=== PATIENT | male | born 1975 | race Caucasian/White ===

== ENCOUNTER → 2018-07-18 | Outpatient (CLI) | payer BC ==
--- NOTE | 2018-07-18 17:03 | RAD ---
Scrotal ultrasound 07/18/2018 CLINICAL HISTORY: Right scrotal mass. TECHNIQUE: Using a combination of real-time ultrasound imaging and color-flow and pulse Doppler imaging techniques, duplex evaluation of the scrotal sac and its contents was performed. Multiple images were obtained. FINDINGS: Both testicles are within normal limits in size and echogenicity. The right testicle measures 5.3 x 3.6 x 2.1 cm in longitudinal, transverse, and AP dimensions. The left testicle measures 4.6 x 3.1 x 2.6 cm in size. Normal color-flow and pulse doppler imaging to both testicles is seen. No focal abnormality of either testicle is noted. A 1 cm cyst is seen involving the left epididymal head. A 2.8 cm cyst is seen lateral to the right testicle which appears to be within the expected location of the body/tail of the right epididymitis. This likely corresponds to the patient's palpable abnormality. There is a minimal left hydrocele. No varicocele is seen. IMPRESSION: 1. Bilateral epididymal cysts, right greater than left. 2. Minimal left hydrocele. Electronically signed by: Juan Trinidad MD (07/18/2018 5:00 PM) [facility]
== END | disposition home or self-care (01) ==
LOC: US 08:23
PROVIDERS: ATTEND Neuromusculoskeletal Medicine & OMM
DX: N50.3 Cyst of epididymis (principal); N43.2 Other hydrocele
CPT/HCPCS: 76870

== ENCOUNTER → 2018-10-03 | Outpatient (CLI) | payer BC ==
--- NOTE | 2018-10-03 15:33 | RAD ---
Examination: GASTRIC EMPTYING STUDY History: left upper quandrant pain and "full feeling" for 1 year. Patient ate egg, toast and 4 ounces of water. 2.0mCi Tc99m Sulfur Colloid Comparison/Correlation: None Findings: 2 mCi technetium 99 M sulfur colloid meal consisting of eggs, toast, and 4 ounces of water was orally administered. Imaging of the 4 hours was performed. At 59 minutes, 8.2 percent gastric emptying is present. At 118 minutes, 27.8 percent gastric emptying noted. At 178 minutes, 60.5 percent gastric emptying noted. At 237 minutes, a 84.4 percent gastric emptying noted. Radiotracer is noted within small bowel on images acquired. Impression: Moderate delay in gastric emptying is identified. Electronically signed by: Jorje Taylor MD (10/03/2018 3:28 PM) [facility] [place]
== END | disposition home or self-care (01) ==
LOC: NM 07:20
PROVIDERS: ATTEND Internal Medicine Gastroenterology
DX: K30 Functional dyspepsia (principal)
CPT/HCPCS: 78264; A9541

== ENCOUNTER 2019-05-13 17:15 | Emergency (ER) | payer OTHER, BC ==
--- NOTE | 2019-05-13 18:44 | EKG ---
[address] [address] Test Date: 2019-05-13 Test Time: 18:40:14 Pat Name: KENTRELL AGRAWAL Department: Room: Gender: M [employer] Pract[employer]er: CINTHIA : 1975 Requested By: TYREE CLEMONS Order Number: [id number] Reading MD: Measurements Intervals Hughes Rate: 79 P: 46 IN: 156 QRS: 13 QRSD: 88 T: 27 QT: 358 QTc: 411 Interpretive Statements SINUS RHYTHM QRS(T) CONTOUR ABNORMALITY CONSISTENT WITH INFERIOR INFARCT PROBABLY OLD ABNORMAL ECG RI6.01 No previous ECG available for comparison
[2019-05-13] MEDS ORDERED: ONDANSETRON PF 4 MG/2 ML VIAL. IV ONE ×2 (18:45→21:00)
[2019-05-13] MEDS ORDERED: LIDOCAINE 2% VISCOUS 15 ML SOLUTION. TOP ONE (19:00)
[2019-05-13 19:17] LABS: BASO % 0 % (0-3); EOS % 0 % (0-3); HEMATOCRIT 46.6 % (39.0-53.0); HEMOGLOBIN 15.6 g/dL (13.0-17.5); LYMPH # 1.7 x10^3/uL (1.0-4.8); LYMPH % 12 % (24-48); MEAN CORPUSCULAR HEMOGLOBIN 29 pg (25-35); MEAN CORPUSCULAR HGB CONC 33 g/dL (31-37); MEAN CORPUSCULAR VOLUME 87 fL (79-100); MONO % 7 % (0-9); NEUT # 11.3 x10^3uL (1.8-7.7); NEUT % 80 % (31-73); PLATELET COUNT 203 x10^3/uL (140-400); RED BLOOD COUNT 5.37 x10^6/uL (4.30-5.70); RED CELL DISTRIBUTION WIDTH 13.6 % (11.5-14.5); WHITE BLOOD COUNT 14.1 x10^3/uL (4.0-11.0)
[2019-05-13] MEDS ORDERED: IOHEXOL 300 MG/ML 75 ML VIAL. IV ONE (19:30)
[2019-05-13 19:47] LABS: ALBUMIN 4.4 g/dL (3.4-5.0); CALCIUM 9.4 mg/dL (8.5-10.1); CREATININE 1.3 mg/dL (0.7-1.3); DIRECT BILIRUBIN 0.1 mg/dL (0.0-0.2); GFR 59.4; TOTAL BILIRUBIN 0.6 mg/dL (0.2-1.0); TOTAL PROTEIN 7.8 g/dL (6.4-8.2)
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
[2019-05-13] MEDS ORDERED: KETOROLAC 30 MG/ML VIAL. ONE (20:23)
[2019-05-13] MEDS ORDERED: KETOROLAC 30 MG/ML VIAL. IV ONE (20:30)
[2019-05-13] MEDS ORDERED: HYDROmorphone PF 1 MG/ML DISP.SYRIN IV ONE (21:00)
[2019-05-13 21:20] VITALS: BP 136/80
[2019-05-13] MEDS ORDERED: ONDA4TAB7 PO (21:29)
[2019-05-13] MEDS ORDERED: HYDR2TAB31 PO (21:29)
[2019-05-13] MEDS ORDERED: DICL75TA PO (21:29)
[2019-05-13] MEDS ORDERED: ORPH-16 PO (21:29)
[2019-05-13] MEDS ORDERED: CEPH-264 PO (21:41)
[2019-05-13] MEDS ORDERED: DIPHTH,PERTUSS(ACELL),TET TOX 0.5 ML DISP.SYRIN. VAX IM ONE (21:45)
== END 2019-05-13 21:53 | disposition home or self-care (01) ==
LOC: ER 17:15
DX: S93.402A Sprain of unspecified ligament of left ankle, initial encounter (principal); S29.012A Strain of muscle and tendon of back wall of thorax, initial encounter; S20.212A Contusion of left front wall of thorax, initial encounter; S60.512A Abrasion of left hand, initial encounter; S60.511A Abrasion of right hand, initial encounter; S80.812A Abrasion, left lower leg, initial encounter; S30.811A Abrasion of abdominal wall, initial encounter; R10.12 Left upper quadrant pain; Z90.89 Acquired absence of other organs; V29.9XXA Motorcycle rider (driver) (passenger) injured in unspecified traffic accident, initial encounter; Y93.I9 Activity, other involving external motion; Y92.488 Other paved roadways as the place of occurrence of the external cause; Y99.8 Other external cause status
CPT/HCPCS: 29515; 36415; 71260; 72125; 72128; 72131; 73590; 73610; 74177; 80048; 80076; 83605; 83690; 85025; 86850; 86900; 86901; 90471; 90715; 93005; 96374; 96375; 96376; 99285; J1170; J1885; J2060; J2405; Q9967